=== PATIENT | female | born 1965 | race Caucasian/White ===

== ENCOUNTER 2017-07-23 10:49 | Day surgery (SDC) | payer OTHER ==
[~2017-07-23] VITALS: Ht 162.6 cm; Wt 53.5 kg
[~2017-07-23 10:49] MED LIST: ADVAIR 100-501 EACH IH; ADVAIR 250/501 DISK IH; BENADRYL25 MG PO; DILAUDID 11 MG/1 ML IV; DILAUDID1 GM MC; LAMICTAL XR200 MG PO; LAMICTAL100 MG PO; LYRICA100 MG PO; LYRICA50 MG PO; NEXIUM40 MG PO; PANTOPRAZOLE SO40 MG PO; PEPTO BISMOL262 MG PO; PERCOCET 5-3251 EACH PO; PERCOCET 5/31 TABLET PO; PRISTIQ100 MG PO; SOMA350 MG PO; TRAMADOL HCL50 MG PO
[2017-07-23 11:11] VITALS: BP 127/76
[2017-07-23 11:21] VITALS: BP 127/76
[2017-07-23 18:35] VITALS: BP 117/57
[2017-07-23 19:34] VITALS: BP 93/50
[2017-07-23 19:41] VITALS: BP 100/58
== END 2017-07-23 19:45 | disposition home or self-care (01) ==
LOC: SDC 10:49
PROC: 00PU03Z Removal of Infusion Device from Spinal Canal, Open Approach (ICD-10-PCS; principal; 2017-07-23)
PROC: 0JH80VZ Insertion of Infusion Pump into Abdomen Subcutaneous Tissue and Fascia, Open Approach (ICD-10-PCS; principal; 2017-07-23)
PROC: 0JPT0VZ Removal of Infusion Pump from Trunk Subcutaneous Tissue and Fascia, Open Approach (ICD-10-PCS; principal; 2017-07-23)
PROC: 00HU03Z Insertion of Infusion Device into Spinal Canal, Open Approach (ICD-10-PCS; principal; 2017-07-23)
DX: T85.695A Other mechanical complication of other nervous system device, implant or graft, initial encounter (principal); G89.4 Chronic pain syndrome; M96.1 Postlaminectomy syndrome, not elsewhere classified; E78.00 Pure hypercholesterolemia, unspecified; F32.9 Major depressive disorder, single episode, unspecified; J44.9 Chronic obstructive pulmonary disease, unspecified; F41.9 Anxiety disorder, unspecified; F17.210 Nicotine dependence, cigarettes, uncomplicated; Z88.0 Allergy status to penicillin; Z98.1 Arthrodesis status
CPT/HCPCS: C1755; J0131; J1100; J1170; J1885; J2250; J2405; J2710; J3010; J3370